=== PATIENT | female | born 1945 | race Asian ===

== ENCOUNTER 2023-06-02 11:08 | Day surgery (SDC) | payer OTHER ==
[~2023-06-02] VITALS: Ht 130 cm; Wt 59.0 kg
[2023-06-02] MEDS ORDERED: fentaNYL citrate 0.05 MG/ML VIAL ONE (12:03)
[2023-06-02] MEDS ORDERED: LIDOCAINE 2% 100 MG/5 ML UJET TP ONE ×2 (12:03→13:25)
[2023-06-02] MEDS ORDERED: fentaNYL citrate 0.05 MG/ML VIAL IVP ONE ×2 (13:10→13:25)
== END 2023-06-02 13:30 | disposition home or self-care (01) ==
LOC: MOR 11:08 → MMU 11:09 → MOR 13:30
PROVIDERS: ATTEND Internal Medicine Gastroenterology
DX: R19.7 Diarrhea, unspecified (principal); K62.89 Other specified diseases of anus and rectum; R10.30 Lower abdominal pain, unspecified; I10 Essential (primary) hypertension; Z79.899 Other long term (current) drug therapy
CPT/HCPCS: 45380; 88305; J3010